=== PATIENT | female | born 1940 | race Caucasian/White ===

== ENCOUNTER 2020-05-28 09:23 | Day surgery (SDC) | payer MEDICARE ==
[~2020-05-28 09:23] MED LIST: Metoclopramide 10 MG/2 ML SDV IV PRN
[2020-05-28] MEDS: Sodium Chloride 0.9% 1,000 ML IV SCH (09:55)
--- NOTE | 2020-05-28 13:09 | OR ---
DATE OF OPERATION: 05/28/2020 SURGEON: Douglas Carlson MD PREOPERATIVE DIAGNOSIS: Surveillance colonoscopy. POSTOPERATIVE DIAGNOSIS: Surveillance colonoscopy. PROCEDURE: Incomplete colonoscopy. ANESTHESIA: MAC. ESTIMATED BLOOD LOSS: None. COMPLICATIONS: None. INDICATION FOR THE PROCEDURE: The patient is a 79-year-old female who is here for followup surveillance colonoscopy. Does have a personal history of polyps in the past, last scope about 8 years ago. She is otherwise denies any change in bowel habits. DESCRIPTION OF PROCEDURE: Informed consent was obtained from the patient. The patient was taken to the operating room, was placed on table in left lateral decubitus position. Monitored anesthesia care was administered. Digital rectal exam performed, it was normal. Colonoscope then advanced through the anus, directed toward the hepatic flexure. She did have a tortuous colon as well as significant looping and was unable to negotiate past the hepatic flexure, stiffener was employed, abdominal pressure was employed, further progress was inhibited by the significant looping. The colonoscope then slowly withdrawn from what I did see no polyps, no cancer, no areas of ischemia or inflammation. She did have moderately severe diverticulosis both large and small in the sigmoid and descending colons. Rectum was also otherwise unremarkable. FINDINGS: Diverticulosis and incomplete colonoscopy. RECOMMENDATIONS: We will set up for CT colonography at her earliest convenience. IDANIA/BERNICE /[id number]
== END 2020-05-28 12:43 | disposition home or self-care (01) ==
LOC: LB.SDS 09:23
PROVIDERS: ATTEND Surgery
DX: Z12.11 Encounter for screening for malignant neoplasm of colon (principal); I10 Essential (primary) hypertension; E03.9 Hypothyroidism, unspecified; K57.30 Diverticulosis of large intestine without perforation or abscess without bleeding; K63.89 Other specified diseases of intestine; Z86.010 Personal history of colon polyps
CPT/HCPCS: J7030

== ENCOUNTER 2023-08-07 14:55 | Emergency (ER) | payer MEDICARE ==
[2023-08-07 16:28] LABS: BASOPHILS ABSOLUTE AUTO 0.03 K/uL (0.02-0.10); BASOPHILS PERCENT AUTO 0.4 % (0.0-0.5); EOSINOPHILS ABSOLUTE AUTO 0.04 K/uL (0.04-0.40); EOSINOPHILS PERCENT AUTO 0.5 % (1.0-5.0); HEMATOCRIT 39.7 % (37.0-47.0); HEMOGLOBIN 13.5 g/dL (11.5-16.5); LYMPHOCYTES ABSOLUTE AUTO 0.71 K/uL (1.50-4.00); LYMPHOCYTES PERCENT AUTO 8.4 % (20.0-40.0); MEAN CORPUSCULAR HEMOGLOBIN 30.5 pg (27.0-32.0); MEAN CORPUSCULAR VOLUME 90 fL (76-96); MEAN PLATELET VOLUME 10.2 fL (6.0-10.0); MONOCYTES ABSOLUTE AUTO 0.99 K/uL (0.20-0.80); MONOCYTES PERCENT AUTO 11.8 % (3.0-10.0); NEUTROPHILS ABSOLUTE AUTO 6.65 K/uL (2.00-7.50); NEUTROPHILS PERCENT AUTO 78.9 % (45.0-70.0); PLATELET COUNT,PLT 297 K/uL (150-500); RED BLOOD CELL COUNT 4.42 M/uL (3.80-5.80); RED CELL DISTRIBUTION WIDTH 14.4 % (11.0-16.0); WHITE BLOOD CELL COUNT,WBC 8.4 K/uL (4.0-11.0)
[2023-08-07 16:32] LABS: ANION GAP 12.8 mmol/L (5.0-15.0); BUN/CREATININE RATIO 12.8 (6-25); CALCIUM 8.5 mg/dL (8.5-10.1); CARBON DIOXIDE,CO2 26.7 mmol/L (21.0-32.0); CREATININE 0.78 mg/dL (0.55-1.02); EST CRCL DRUG DOSING (CG) 48.02 mL/min; POTASSIUM,K 3.5 mmol/L (3.5-5.1)
[2023-08-07 17:01] LABS: INFLUENZA A NAA NEGATIVE (NEGATIVE); INFLUENZA B NAA NEGATIVE (NEGATIVE); RESPIRATORY SYNCYTIAL VIR NAA NEGATIVE (NEGATIVE)
[2023-08-07 17:08] LABS: CORONAVIRUS COVID-19 NAA POSITIVE (NEGATIVE)
== END 2023-08-07 17:27 | disposition home or self-care (01) ==
LOC: LB.ED 14:55
DX: U07.1 COVID-19 (principal); I10 Essential (primary) hypertension; E03.9 Hypothyroidism, unspecified; Z79.82 Long term (current) use of aspirin; Z79.890 Hormone replacement therapy; Z90.710 Acquired absence of both cervix and uterus; Z79.899 Other long term (current) drug therapy
CPT/HCPCS: 0241U; 36415; 80048; 85025; 99284